=== PATIENT | female | born 2000 | race Caucasian/White ===

== ENCOUNTER 2021-06-12 14:26 | Emergency (ER) | payer OTHER ==
[~2021-06-12] VITALS: Ht 165.1 cm; Wt 72.6 kg
[2021-06-12 14:32] VITALS: BP 126/74
--- NOTE | 2021-06-12 14:40 | NUR ---
20 Y/O FEMALE BIBA C/O FALL XTODAY. 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 DENIES LOC. HEMATOMA TO BACK OF HEAD. PT STATES 8/10 THROBBING PAIN AND BODY ACHES. C/O DIZZINESS, DENIES NAUSEA, VOMITING. MEDHX: DENIES NKA
--- NOTE | 2021-06-12 14:54 | NUR ---
ERMD AT BEDSIDE EXAMINING PT
[2021-06-12] MEDS ORDERED: ACET-10509 PO (15:24)
[2021-06-12] MEDS ORDERED: ACETAMINOPHEN EXTRA STRENGTH 500 MG TAB PO ONE (15:25)
--- NOTE | 2021-06-12 16:12 | NUR ---
pt taken to ct scan via shayna
--- NOTE | 2021-06-12 16:23 | NUR ---
PT RETURNED FROM CT
[2021-06-12 16:46] VITALS: BP 125/65
--- NOTE | 2021-06-12 16:46 | NUR ---
Patient discharged with v/s stable. Written and verbal after care instructions given and explained. Patient alert, oriented and verbalized understanding of instructions. Ambulatory with steady gait. All questions addressed prior to discharge. ID band removed. Patient advised to follow up with PMD. Rx of TYLENOL EXTRA STRENGTH given. Patient educated on indication of medication including possible reaction and side effects. Opportunity to ask questions provided and answered.
== END 2021-06-12 16:46 | disposition home or self-care (01) ==
LOC: MED 14:26
DX: S16.1XXA Strain of muscle, fascia and tendon at neck level, initial encounter (principal); S09.90XA Unspecified injury of head, initial encounter; W22.8XXA Striking against or struck by other objects, initial encounter; Y93.89 Activity, other specified; Y92.89 Other specified places as the place of occurrence of the external cause; Y99.8 Other external cause status
CPT/HCPCS: 70450; 72125; 81002; 81025; 99285